=== PATIENT | female | born 1985 | race Caucasian/White ===

== ENCOUNTER 2019-01-19 21:10 | Emergency (ER) | payer MEDICAID ==
[~2019-01-19] VITALS: Ht 170.2 cm; Wt 68.4 kg
[~2019-01-19 21:10] MED LIST: IBUP-1222 PO
[2019-01-19] MEDS ORDERED: ONDANSETRON 2MG/ML, 2ML ONE (21:35)
[2019-01-19] MEDS ORDERED: MORPHINE SULFATE 4 MG/ML, 1ML ONE ×2 (21:36→22:45)
[2019-01-19] MEDS: MORPHINE SULFATE 4 MG/ML, 1ML IVPush PRN ×2 (21:40→22:47)
[2019-01-19 21:53] LABS: BASOPHILS # (AUTO) 0.05 x10^3/uL (0-0.1); BASOPHILS % (AUTO) 0 % (0-1); EOSINOPHILS # (AUTO) 0.05 x10^3/uL (0-0.4); EOSINOPHILS % (AUTO) 0 % (1-7); LYMPHOCYTES # (AUTO) 2.28 x10^3/uL (1-3.4); LYMPHOCYTES % (AUTO) 19 % (22-44); MD NO; MEAN CORPUSCULAR HEMOGLOBIN 30.1 pg (27.0-34.8); MEAN CORPUSCULAR HGB CONC 31.9 g/dL (32.4-35.8); MEAN CORPUSCULAR VOLUME 94.5 fL (80-100); MEAN PLATELET VOLUME 8.8 fL (7.4-10.4); MONOCYTES # (AUTO) 0.89 x10^3/uL (0.2-0.8); MONOCYTES % (AUTO) 7 % (2-9); NEUTROPHILS # (AUTO) 9.01 x10^3/uL (1.8-6.8); NEUTROPHILS % (AUTO) 73 % (42-75); PLATELET COUNT 278 x10^3/uL (130-400); RED BLOOD COUNT 4.21 x10^6/uL (3.82-5.3); RED CELL DISTRIBUTION WIDTH 13.8 % (9.6-15.2)
--- NOTE | 2019-01-19 21:56 | NUR ---
PT PRESENTING TO ER FOR SEVERE BILATERAL PELVIC PAIN, N/V AND ORGANGE/RED TINGED DC STARTING THIS MORNING. STATES FEVERS AT HOME 2 DAYS AGO. RECENT DELIVERY 10 WKS AGO, HAS NOT HAD F/U APT WITH OB D/T INSURANCE AND INITIAL OB UNWILLING TO SEE PT AFTER DELIVERY D/T WHERE PT DELIVERED. CONNECTED TO MONITORING, TACHY HR. IV PLACED, LABS DRAWN AND PT MEDICATED PER MAR FOR PAIN AND NAUSEA. UA COLLECTED AND SENT TO LAB. AT BEDSIDE. CALL LIGHT WITHIN REACH. AWAITING US AND RESULTS AT THIS TIME.
[2019-01-19 21:58] LABS: MICROSCOPIC NOT IND
[2019-01-19 21:59] LABS: ALANINE AMINOTRANSFERASE 32 U/L (12-78); ALBUMIN 4.3 g/dL (3.4-5.0); ANION GAP 6 mmol/L (5-15); CHLORIDE 106 mmol/L (98-107); CREATININE 0.62 mg/dL (0.55-1.02)
--- NOTE | 2019-01-19 21:59 | NUR ---
PT STATES PAIN INITIALLY 8/10 THEN DROPPED TO 5/10 AFTER MEDS, NAUSEA RESOLVED.
[2019-01-19] MEDS ORDERED: SODIUM CHLORIDE FLUSH 10ML SYR IVF ONE (22:00)
[2019-01-19] MEDS ORDERED: ONDANSETRON 2MG/ML, 2ML IVPush ONE (22:00)
[2019-01-19 22:02] LABS: ALKALINE PHOSPHATASE 68 U/L (45-117); BILIRUBIN,TOTAL 0.4 mg/dL (0.2-1.0); TOTAL PROTEIN 7.7 g/dL (6.4-8.2)
[2019-01-19 22:10] LABS: CULTURE INDICATED? NO
[2019-01-19] MEDS ORDERED: PROMETHAZINE 25 MG/ML, 1ML ONE (22:13)
--- NOTE | 2019-01-19 22:17 | NUR ---
PT CONTINUING TO DRY MD ROSEY NOTIFIED AND ORDERS RECEIVED. PT MEDICATED PER MAR. TAKEN TO US
[2019-01-19] MEDS ORDERED: PROMETHAZINE 25 MG/ML, 1ML IM ONE (22:30)
--- NOTE | 2019-01-19 22:42 | NUR ---
PT BACK FROM US, PAIN NOW 7/10 AFTER TEST. NAUSEA RESOLVED AT THIS TIME. VSS. CALL LIGHT WITHIN REACH. MD TO BE UPDATED WITH PT PAIN LEVEL AND BP. REPORT GIVEN TO GUSTABO URBINA
[2019-01-19] MEDS ORDERED: MORPHINE SULFATE 4 MG/ML, 1ML IVPush PRN (23:00)
--- NOTE | 2019-01-19 23:15 | NUR ---
PT REMEDICATED FOR PAIN. PT TO CT
[2019-01-19] MEDS ORDERED: OMNIPAQUE 350 MG/ML, 100ML BOTTLE ONE (23:27)
--- NOTE | 2019-01-20 01:10 | NUR ---
AT BEDSIDE FOR PELVIC EXAM.
[2019-01-20] MEDS ORDERED: DOXYCYCLINE 100MG TABLET PO ONE (01:30)
[2019-01-20] MEDS ORDERED: CEFTRIAXONE PMX 1GM/50ML 50 ML IV ONE (01:30)
[2019-01-20 01:46] LABS: CLUE CELLS NONE SEEN (NONE SEEN); WET PREP WBCS FEW (FEW)
[2019-01-20] MEDS ORDERED: CEFTRIAXONE PMX 1GM/50ML 50 ML ONE (01:46)
[2019-01-20] MEDS ORDERED: DOXYCYCLINE 100MG TABLET ONE (01:46)
[2019-01-20] MEDS ORDERED: ONDANSETRON 2MG/ML, 2ML ONE (01:52)
[2019-01-20] MEDS ORDERED: ONDANSETRON 2MG/ML, 2ML IVPush ONE (02:00)
--- NOTE | 2019-01-20 02:19 | NUR ---
ABX RUNNING. PT M,EDICATED FOR NAUSEA. CALL LIGHT IN REACH
[2019-01-20 02:56] VITALS: BP 104/57
--- NOTE | 2019-01-20 02:56 | NUR ---
Patient given discharge instructions and they have confirmed that they understand the instructions. Patient ambulatory with steady gait.
--- NOTE | 2019-01-21 15:30 | NUR ---
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 PT NO LONGER IN DEPARTMENT.
== END 2019-01-20 02:58 | disposition home or self-care (01) ==
LOC: ED 22:08
DX: R10.2 Pelvic and perineal pain (principal); N89.8 Other specified noninflammatory disorders of vagina
CPT/HCPCS: 36415; 74177; 76830; 80053; 81003; 85025; 87210; 87491; 87591; 87808; 96365; 96372; 96375; 96376; 99284; J0696; J2270; J2405; J2550; Q9967